=== PATIENT | male | born 1980 | race American Indian/Alaskan Native ===

== ENCOUNTER 2017-03-13 11:54 | Emergency (ER) | payer SELFPAY ==
[2017-03-13 12:06] VITALS: BP 129/86
[2017-03-13 12:48] LABS: Basophils % (Auto) 0.9 % (0.0-1.8); Eosinophils % (Auto) 4.4 % (0.0-4.3); Hematocrit 49.7 % (35.5-45.6); Hemoglobin 16.6 gm/dl (11.8-15.2); Mean Corpuscular HGB Conc 34 % (32-34); Mean Corpuscular Hemoglobin 31 pg (28-32); Mean Corpuscular Volume 93 fl (84-94); Platelet Count 203 K/mm3 (140-440); Red Blood Count 5.37 M/mm3 (3.65-5.03); Red Cell Distribution Width 13.6 % (13.2-15.2); White Blood Count 9.3 K/mm3 (4.5-11.0)
[2017-03-13 13:17] LABS: Anion Gap 20 mmol/L; BUN/Creatinine Ratio 20; Blood Urea Nitrogen 16 mg/dL (9-20); Calcium 9.9 mg/dL (8.4-10.2); Carbon Dioxide 24 mmol/L (22-30); Chloride 100.3 mmol/L (98-107); Glucose 107 mg/dL (75-100); Potassium 4.6 mmol/L (3.6-5.0); Sodium 140 mmol/L (137-145)
== END 2017-03-13 12:28 | disposition left against medical advice (07) ==
LOC: ED 11:54
DX: R07.9 Chest pain, unspecified (principal); R51 Headache; Z53.21 Procedure and treatment not carried out due to patient leaving prior to being seen by health care provider
CPT/HCPCS: 36415; 80048; 84484; 85025

== ENCOUNTER 2017-03-14 06:51 | Emergency (ER) | payer SELFPAY | END 2017-03-14 06:55 | disposition left against medical advice (07) | LOC: ED 06:51 | DX: Z53.21 Procedure and treatment not carried out due to patient leaving prior to being seen by health care provider (principal) ==

== ENCOUNTER 2017-06-01 17:55 | Emergency (ER) | payer SELFPAY ==
[2017-06-01 18:32] VITALS: BP 138/81
== END 2017-06-01 20:50 | disposition left against medical advice (07) ==
LOC: ED 17:55
DX: H53.8 Other visual disturbances (principal); Z53.21 Procedure and treatment not carried out due to patient leaving prior to being seen by health care provider